=== PATIENT | male | born 1985 | race African-American/Black ===

== ENCOUNTER 2016-07-27 04:12 | Emergency (ER) | payer MEDICAID, SELFPAY ==
[~2016-07-27] VITALS: Ht 172.7 cm; Wt 68.0 kg
[~2016-07-27 04:12] MED LIST: ASPI325T OR; CARV12.5 OR; DIGO0.257 OR; LISI2.5T OR; No Historical Meds; SPIR25TA2 OR
[2016-07-27] MEDS ORDERED: VALA1TAB PO (05:26)
[2016-07-27] MEDS ORDERED: valACYclovir HCL 500 MG TAB PO ONE (05:30)
[2016-07-27 05:52] VITALS: BP 116/72
== END 2016-07-27 05:53 | disposition home or self-care (01) ==
LOC: M ED 05:35
DX: A60.02 Herpesviral infection of other male genital organs (principal)

== ENCOUNTER 2016-08-21 06:02 | Emergency (ER) | payer SELFPAY ==
[~2016-08-21 06:02] MED LIST changes: +VALA1TAB PO
[2016-08-21 08:29] LABS: BASO % 0.3 % (0.0-1.0); EOS # 0.1 K/mm3 (0.0-0.50); EOS % 1.7 % (0.0-3.0); LARGE UNSTAINED CELL # 0.1 K/mm3 (0.0-0.4); LARGE UNSTAINED CELL % 1.5 % (0.0-4.0); LYMPH # 1.3 K/mm3 (1.5-6.5); LYMPH % 20.7 % (24.0-44.0); MEAN CORPUSCULAR HEMOGLOBIN 26.8 pg (27.0-33.0); MEAN CORPUSCULAR HGB CONC 31.8 g/dl (32.0-36.5); MEAN CORPUSCULAR VOLUME 84.2 fl (80.0-96.0); MONO # 0.3 K/mm3 (0.0-0.8); NEUTROPHILS # 4.1 K/mm3 (1.8-7.7); NEUTROPHILS % 70.7 % (36.0-66.0); PLATELET COUNT, AUTOMATED 252 k/mm3 (150-450); RED CELL DISTRIBUTION WIDTH 12.8 % (11.5-14.5); WHITE BLOOD COUNT 5.8 K/mm3 (4.0-10.0)
[2016-08-21 08:58] LABS: ALBUMIN 4.3 GM/DL (3.2-5.2); ALKALINE PHOSPHATASE 84 U/L (45-117); ALT/SGPT 24 U/L (12-78); ANION GAP 4 MEQ/L (8-16); AST/SGOT 21 U/L (15-37); BILIRUBIN,TOTAL 0.3 MG/DL (0.2-1.0); BLOOD UREA NITROGEN 8 MG/DL (7-18); CARBON DIOXIDE LEVEL 30 MEQ/L (21-32); CHLORIDE LEVEL 104 MEQ/L (98-107); CREATININE FOR GFR 1.03 MG/DL (0.70-1.30); GLOMERULAR FILTRATION RATE > 60.0 (>60); GLUCOSE, FASTING 98 MG/DL (70-105); POTASSIUM SERUM 3.9 MEQ/L (3.5-5.1); SODIUM LEVEL 138 MEQ/L (136-145); TOTAL PROTEIN 8.2 GM/DL (6.4-8.2)
[2016-08-21] MEDS ORDERED: ACYC400T PO (09:13)
[2016-08-21 09:26] VITALS: BP 132/82
[2016-08-23 10:28] LABS: HEPATITIS B SURFACE ANTIBODY NEGATIVE (POSITIVE)
== END 2016-08-21 09:27 | disposition home or self-care (01) ==
LOC: M ED 08:09
DX: Z76.0 Encounter for issue of repeat prescription (principal); Z20.2 Contact with and (suspected) exposure to infections with a predominantly sexual mode of transmission

== ENCOUNTER 2016-09-11 14:25 | Emergency (ER) | payer SELFPAY ==
[~2016-09-11] VITALS: Ht 172.7 cm; Wt 70.8 kg
[~2016-09-11 14:25] MED LIST changes: +ACYC400T PO; -VALA1TAB PO; +VALA1TAB2 PO
[2016-09-11] MEDS ORDERED: ACYC200C8 PO (16:12)
[2016-09-11] MEDS ORDERED: AZITHROMYCIN 250 MG TAB PO ONE (16:15)
[2016-09-11] MEDS ORDERED: cefTRIAXone SOD 500 MG VIAL (J0696) IM ONE (16:15)
[2016-09-11 16:39] VITALS: BP 123/77
== END 2016-09-11 16:45 | disposition home or self-care (01) ==
LOC: M ED 14:25
DX: A60.02 Herpesviral infection of other male genital organs (principal); A54.9 Gonococcal infection, unspecified
CPT/HCPCS: 96372; 99282; J0696

== ENCOUNTER 2016-09-20 03:51 | Emergency (ER) | payer SELFPAY ==
[~2016-09-20] VITALS: Ht 172.7 cm; Wt 70.0 kg
[~2016-09-20 03:51] MED LIST changes: +ACYC200C8 PO
[2016-09-20 04:04] VITALS: BP 118/75
[2016-09-20] MEDS ORDERED: VALT500T PO (06:33)
== END 2016-09-20 06:43 | disposition home or self-care (01) ==
LOC: M ED 03:51
DX: A60.02 Herpesviral infection of other male genital organs (principal); F17.210 Nicotine dependence, cigarettes, uncomplicated

== ENCOUNTER → 2017-04-06 | Outpatient (CLI) | payer MEDICAID | LOC: M OUTALCOH 13:07 | DX: F10.20 Alcohol dependence, uncomplicated (principal); F12.20 Cannabis dependence, uncomplicated; F13.20 Sedative, hypnotic or anxiolytic dependence, uncomplicated; F14.20 Cocaine dependence, uncomplicated ==

== ENCOUNTER 2017-04-08 11:21 | Outpatient (RCR) | payer MEDICAID | END 2017-05-04 | LOC: M OUTALCOH 11:21 | DX: F14.20 Cocaine dependence, uncomplicated (principal); F10.20 Alcohol dependence, uncomplicated; F12.20 Cannabis dependence, uncomplicated; F17.200 Nicotine dependence, unspecified, uncomplicated ==

== ENCOUNTER → 2017-04-25 | Outpatient (CLI) | payer MEDICAID ==
[2017-04-25 14:23] LABS: RUBELLA IgG QUALITATIVE IMMUNE (IMMUNE)
[2017-04-26 08:07] LABS: MUMPS VIRUS IgG ANTIBODY 12.5 AU/mL (Immune >10.9)
[2017-04-26 08:07] LABS: RUBEOLA IgG ANTIBODY <25.0 AU/mL (Immune >29.9)
== END ==
LOC: M LAB 12:40
DX: Z01.84 Encounter for antibody response examination (principal)
CPT/HCPCS: 86762

== ENCOUNTER 2017-06-03 14:51 | Emergency (ER) | payer OTHER, MEDICAID | END 2017-06-03 15:43 | disposition home or self-care (01) | LOC: M ED 14:51 | DX: A60.02 Herpesviral infection of other male genital organs (principal); I10 Essential (primary) hypertension; F17.200 Nicotine dependence, unspecified, uncomplicated; Z79.899 Other long term (current) drug therapy | CPT/HCPCS: 99282 ==

== ENCOUNTER → 2018-11-07 | Outpatient (CLI) | payer MEDICAID ==
[~2018-11-07] MED LIST changes: +VALT500T PO
== END ==
LOC: M OUTALCOH 09:23
PROVIDERS: ATTEND Psychiatry & Neurology Psychiatry
DX: F14.20 Cocaine dependence, uncomplicated (principal)

== ENCOUNTER 2018-12-01 10:30 | Outpatient (RCR) | payer MEDICAID | END 2018-12-04 | LOC: M OUTALCOH 10:30 | PROVIDERS: ATTEND Psychiatry & Neurology Psychiatry | DX: F14.20 Cocaine dependence, uncomplicated (principal); F12.20 Cannabis dependence, uncomplicated; F11.20 Opioid dependence, uncomplicated; Z72.0 Tobacco use ==

== ENCOUNTER 2018-12-29 13:00 | Outpatient (RCR) | payer MEDICAID | END 2019-01-04 | LOC: M OUTALCOH 13:00 | PROVIDERS: ATTEND Psychiatry & Neurology Psychiatry | DX: F14.20 Cocaine dependence, uncomplicated (principal); F12.20 Cannabis dependence, uncomplicated; F11.20 Opioid dependence, uncomplicated; Z72.0 Tobacco use ==

== ENCOUNTER 2019-07-04 17:29 | Emergency (ER) | payer MEDICAID, OTHER ==
[~2019-07-04] VITALS: Ht 175.3 cm; Wt 78.0 kg
[~2019-07-04 17:29] MED LIST changes: -VALA1TAB2 PO; +VALA1TAB5 PO
[2019-07-04] MEDS ORDERED: VALA500T5 PO (17:39)
[2019-07-04] MEDS ORDERED: NALT50TA4 PO (17:39)
[2019-07-04] MEDS ORDERED: BUSP1TAB PO (17:39)
[2019-07-04 17:45] VITALS: BP 224/123
== END 2019-07-04 17:59 | disposition left against medical advice (07) ==
LOC: M ED 17:29
DX: R51 Headache (principal); I10 Essential (primary) hypertension; R10.10 Upper abdominal pain, unspecified; I25.2 Old myocardial infarction; F17.200 Nicotine dependence, unspecified, uncomplicated; Z79.899 Other long term (current) drug therapy